=== PATIENT | female | born 1980 | race Hispanic/Latino ===

== ENCOUNTER 2017-03-05 17:31 | Emergency (ER) | payer MEDICAID ==
[2017-03-05 17:41] VITALS: BP 100/65; PULSE 86; RESP 20; O2SAT 100
[2017-03-05 19:24] VITALS: BP 101/56; PULSE 72; O2SAT 100
[2017-03-05 19:38] LABS: BASOPHILS % (AUTO) 0.4 % (0-3); EOSINOPHILS % (AUTO) 0.5 % (0-5); MONOCYTES % (AUTO) 8.3 % (4-12); Mean Corpuscular Hemoglobin 31.2 pg (27.0-35.0); Mean Corpuscular Volume 92.2 fL (81-100); NEUTROPHILS % (AUTO) 74.5 % (40-74); Platelet Count 197 bil/L (150-400)
--- NOTE | 2017-03-05 20:47 | ED.REPORT ---
HPI-Preg Under 20 Weeks Date of Service Mar 05, 2017 ED Provider: Jose Iyer DO A 37 year old female who is 10 weeks presents to the ED due to vaginal bleeding. For the last four days, the pt has noticed a small amount of blood on the paper when she wipes after urinating. This is accompanied by mild lower abdominal cramping. She also admits to insomnia for the last several days. The pt denies pertinent medical history or problems in past pregnancies. She had an ultrasound two months ago that was normal and is established with [facility]. Nursing Notes Stated Complaint: PROBLEM Chief Complaint: Female Abdominal Pain Nursing Notes Reviewed: Yes Allergies: Coded Allergies: No Known Allergies (Verified , 03/05/17) Scheduled PRN diphenhydrAMINE HCl (Benadryl) 25 Mg Capsule 25 MG PO HS PRN PRN General Time Seen by Provider: 20:47 Chief Complaint Other (Vaginal bleeding) Hx Obtained From: Patient Arrived By: Walk-in Onset Occurred: 4 days ago Symptom Duration: Intermittent Recent Healthcare: No recent hospitalization, Recent doctor visit Similar Sx Previous: No Past Medical History Past Medical History none reported Past Surgical History right foot ganglion cyst removal back surgery Family History Sister has a history of gallstones Smoking History Never Smoker Social History Alcohol Use: Denies alcohol use Drug Use: Denies drug use Ambulatory Status Independent Review of Systems Respiratory: Denies: Non-productive cough, Shortness of breath Cardiovascular: Denies: Chest pain GI: Reports: Abdominal pain (mild), Denies: Vomiting Female: Reports: Vaginal bleeding - abnl Musculoskeletal: Denies: Back pain, Neck pain Skin: Denies Rash Complete sys rev & neg: except as marked. Psychiatric: Reports: Insomnia Physical Exam Initial Vital Signs Vital Signs (First) Date Time Temp Pulse Resp B/P Pulse Ox O2 Delivery O2 Flow Rate FiO2 03/05/17 17:41 37.4 86 20 100/65 100 Room Air Initial VS: Reviewed General/Constitutional: Awake, Alert Abdomen: Atraumatic, Soft, Non-tender Female Genitourinary: Exam deferred : Exam deferred ENT: Atraumatic, Airway patent, Mucous membranes moist Respiratory / Chest: Atraumatic, Breath sounds NL, Breath sounds = bilat, No respiratory distress Cardiovascular: Heart rate NL, Regular rhythm, Heart sounds NL Back: Atraumatic, Full range of motion Neurologic: Oriented X3, Speech NL, No motor deficits, No sensory deficits Head / Eyes: Atraumatic, Normocephalic, PERRL, EOMI Neck: Atraumatic, Supple, Full range of motion Upper Extremity / MS: Atraumatic, Full range of motion Lower Extremity / Pelvis / MS: Atraumatic, Full range of motion Skin: Atraumatic, Color NL, No rash, Warm, Dry Psychiatric: Affect NL, Mood NL Interpretation & Diagnostics Lab Results Interpretation Result Diagram: 03/05/17191603/05/171916 Test 03/05/17 19:17 White Blood Count 11.0th/mm3 (3.8-10.1) Red Blood Count 3.98mil/mm3 (3.90-5.20) Hemoglobin 12.4g/dL (12.0-15.6) Hematocrit 36.7% (35.0-46.0) Mean Corpuscular Volume 92.2fL (81-100) Mean Corpuscular Hemoglobin 31.2pg (27.0-35.0) Mean Corpuscular Hemoglobin Concent 33.8% (32.0-37.0) Red Cell Distribution Width 12.5% (12.3-15.4) Platelet Count 197bil/L (150-400) Neutrophils (%) (Auto) 74.5% (40-74) Lymphocytes (%) (Auto) 16.1% (14-46) Monocytes (%) (Auto) 8.3% (4-12) Eosinophils (%) (Auto) 0.5% (0-5) Basophils (%) (Auto) 0.4% (0-3) Sodium Level 138mEq/L (134-144) Potassium Level 4.2mEq/L (3.5-5.2) Chloride Level 105mEq/L (97-108) Carbon Dioxide Level 18mmol/L (18-29) Blood Urea Nitrogen 8mg/dL (6-20) Creatinine 0.45mg/dL (0.57-1.00) Estimat Glomerular Filtration Rate 225mL/min (>59) Glucose Level 87mg/dL (60-99) Calcium Level 8.9mg/dL (8.5-10.1) Total Bilirubin 0.2mg/dL (0.0-1.2) Aspartate Amino Transf (AST/SGOT) 14U/L (0-50) Alanine Aminotransferase (ALT/SGPT) 14U/L (0-32) Alkaline Phosphatase 47U/L (25-150) Total Protein 7.4g/dL (6.4-8.4) Albumin 4.3g/dL (3.4-5.0) HCG Beta Subunit [id number]/mL Hold Justice Top Tube Received (Received) US FAST Exam IUP with visible motion and heartbeat heart tone: 162 Exam Performed by: ED physician, ED resident Exam Type: Diagnostic Exam Interpreted by: ED physician Indication: Re-Eval/Medical Decision Source of Hx: Old records Re-Evaluation/Progress : Time of Eval: 22:28 Patient Status: Condition improved Re-Evaluation/Progress Note: Pt rechecked, who is resting. The diagnosis and plan for discharge are discussed. The pt understands and agrees with the plan. All questions are addressed at this time. Counseled Regarding: Diagnosis, Lab results, Need for follow-up, When/why to return to ED Discharge & Departure Primary Impression: Threatened Additional Impressions: Vaginal bleeding Insomnia Insomnia type: primary Qualified Code: F51.01 - Primary insomnia Disposition: Home Discharge Condition All VS Reviewed: Yes Condition: Stable Patient Instructions: Threatened Miscarriage (ED) Additional Instructions: Thank you for allowing us to be a part of your care. Your ultrasound is reassuring. Take Benadryl as directed to help you sleep. Call your [employer] to arrange a follow up appointment next week. Return to the emergency department if you develop any new or worsening symptoms such as increased vaginal bleeding or worsening abdominal pain. Take Benadryl as needed for sleep. Franci por permitirnos ser parte de renae atencin. El ultrasonido es tranquilizador. Glen Benadryl segn las instrucciones que le ayudarn a dormir. Llame a renae obstetra para concertar mg yesenia la prxima semana de seguimiento. Volver al servicio de urgencias si presenta cualquier sntoma nuevo o que empeora edvin aumentado vaginal sangrado o empeoramiento de dolor abdominal. Glen Benadryl para dormir. Referrals: Akua Lo (PCP) (Family) Scribe Attestation Portions of this note were transcribed by Annette Carter. I, Dr. Iyer personally performed the history, physical exam and medical decision-making; I reviewed and confirmed the accuracy of the information in the transcribed note. copies to: Akua Lo Gary R DO Mar 05, 2017 20:47 ANNETTE CARTER Mar 05, 2017 21:58
[2017-03-05] MEDS ORDERED: DIPH25CA6 PO (22:33)
[2017-03-05 22:43] VITALS: BP 94/60; PULSE 71; RESP 16; O2SAT 100
== END 2017-03-05 22:39 | disposition home or self-care (01) ==
LOC: SED 17:31
DX: O20.0 Threatened abortion (principal); O99.341 Other mental disorders complicating pregnancy, first trimester; F51.01 Primary insomnia; Z3A.10 10 weeks gestation of pregnancy